=== PATIENT | female | born 1930 | race Caucasian/White ===

== ENCOUNTER 2018-03-22 18:02 | Emergency (ER) | payer MEDICARE ==
[2018-03-22 18:55] LABS: #Eosinphils 0.1 thou/uL (0.0-0.7); #Lymphocytes 1.3 thou/uL (1.20-3.40); #Monocytes 0.4 thou/uL (0.11-0.59); #Neutrophils 5.2 thou/uL (1.40-6.50); %Basophils 0.2 % (0.0-1.0); %Eosinophils 1.8 % (0.0-10.0); %Monocytes 5.6 % (0.0-10.0); %Neutrophils 74.4 % (42.0-75.0); Hemoglobin 11.4 g/dL (12.0-16.0); Mean Corpuscular HGB CONC 32.7 g/dL (32.0-36.0); Mean Corpuscular Hemoglobin 30.7 pg (27.0-31.0); Mean Corpuscular Volume 93.7 fL (78.0-98.0); Mean Platelet Volume 8.2 fL (7.4-10.4); Platelet Count 213 thou/uL (130-400); RBC Distribution Width 17.7 % (11.5-14.5); Red Blood Cell (RBC) Count 3.72 mill/uL (4.20-5.40)
[2018-03-22 19:22] LABS: CKMB 1.5 ng/mL (0-6.6); Troponin I 0.014 ng/mL (< 0.028)
[2018-03-22 19:24] LABS: Albumin 3.6 g/dL (3.4-4.8); Alkaline Phosphatase 68 U/L (40-150); Anion Gap 13 mmol/L (10-20); Bilirubin, Total 0.8 mg/dL (0.2-1.2); Calcium 8.9 mg/dL (7.8-10.44); Carbon Dioxide 24 mmol/L (23-31); Chloride 102 mmol/L (98-107); Globulin 3.3 g/dL (2.4-3.5); Glucose 100 mg/dL (83-110); Potassium 3.4 mmol/L (3.5-5.1); Protein, Total 6.9 g/dL (6.0-8.3); Sodium 136 mmol/L (136-145)
[2018-03-22 19:58] LABS: ALT (SGPT) Less than 7 U/L (8-55); AST (SGOT) 20 U/L (5-34); BUN (Urea Nitrogen) 29 mg/dL (9.8-20.1); CK (CPK) 43 U/L (29-168); Calc. Creatinine Clearance 0 mL/min (70-130); Estimated GFR-MDRD 50
[2018-03-22 20:28] LABS: Bilirubin Negative (Negative); Blood, Urine Negative (Negative); Clarity CLEAR (Clear); Glucose, Urine (Dipstick) Negative (Negative); Leukocyte Negative (Negative); Nitrite Negative (Negative); Protein, Urine (Dipstick) Negative (Neg-Trace); Specific Gravity, Urine 1.013 (1.002-1.036); Urobilinogen 0.2 mg/dL (0.2-1.0)
--- NOTE | 2018-03-30 11:31 | EKG ---
Test Reason : Blood Pressure : / mmHG Vent. Rate : 073 BPM Atrial Rate : 073 BPM P-R Int : 292 ms QRS Dur : 166 ms QT Int : 468 ms P-R-T Axes : 032 -53 070 degrees QTc Int : 515 ms Electronic ventricular pacemaker Confirmed by PARVIN GUZMAN MD ([id number]), web editor FRANCESCA ETIENNE ([id number]) on 03/30/2018 11:31:03 AM Referred By: Confirmed By:PARVIN GUZMAN MD
== END 2018-03-22 20:47 | disposition home or self-care (01) ==
LOC: ERS 18:02
DX: R53.1 Weakness (principal); I50.9 Heart failure, unspecified; E03.9 Hypothyroidism, unspecified; Z79.899 Other long term (current) drug therapy
CPT/HCPCS: 36415; 80053; 81003; 82553; 83880; 84484; 85025; 87086; 93005

== ENCOUNTER 2018-06-11 09:23 | Day surgery (SDC) | payer MEDICARE ==
[2018-06-10 13:07] VITALS: BMI 28.1
[2018-06-11] MEDS ORDERED: PROPOFOL 20 ML ONE (10:10)
[2018-06-11 10:26] LABS: Anion Gap 12 mmol/L (10-20); BUN (Urea Nitrogen) 18 mg/dL (9.8-20.1); Calc. Creatinine Clearance 54 mL/min (70-130); Calcium 9.2 mg/dL (7.8-10.44); Carbon Dioxide 30 mmol/L (23-31); Chloride 98 mmol/L (98-107); Estimated GFR-MDRD 56; Glucose 101 mg/dL (83-110); Potassium 3.8 mmol/L (3.5-5.1); Sodium 136 mmol/L (136-145)
--- NOTE | 2018-06-11 13:59 | ECHO ---
TRANSESOPHAGEAL ECHOCARDIOGRAM: DATE OF PROCEDURE: 06/11/18 INDICATION: 88-year-old woman with paroxysmal atrial fibrillation. DESCRIPTION OF PROCEDURE: The patient was taken to the PACU. The patient was sedated by anesthesiology. A transesophageal probe was placed in the distal esophagus and stomach. Echocardiographic images were obtained. The transesophageal probe was removed. FINDINGS: 1. Mild decrease in left ventricular systolic function. 2. Left atrial enlargement. 3. Moderate mitral regurgitation. 4. Moderate tricuspid regurgitation. 5. Mild aortic regurgitation. 6. No formed thrombus in the left atrium or left atrial appendage. 7. Spontaneous contrast noted in left atrium and left atrial appendage. 8. Pacemaker wire noted in the right ventricle. 9. Atherosclerotic debris in the descending aorta. IMPRESSION: No formed thrombus in the left atrium or left atrial appendage.
--- NOTE | 2018-06-11 14:03 | OP ---
CARDIOLOGY PROCEDURE NOTE: Date: 06/11/18 PROCEDURE: Electrical cardioversion. INDICATION FOR PROCEDURE: 88-year-old woman with paroxysmal atrial fibrillation. DESCRIPTION OF PROCEDURE: The patient was taken to the PACU. The patient was shocked with 35 joules of synchronized electricity through the defibrillator. IMPRESSION: Successful electrical cardioversion.
[2018-06-11] MEDS ORDERED: PROPOFOL 200 MG/20 ML VIAL ONE (16:26)
--- NOTE | 2018-06-12 21:58 | EKG ---
Test Reason : PREOP JUSTIN/CARDIOVESR Blood Pressure : / mmHG Vent. Rate : 070 BPM Atrial Rate : 078 BPM P-R Int : 000 ms QRS Dur : 164 ms QT Int : 472 ms P-R-T Axes : 000 -62 063 degrees QTc Int : 509 ms Electronic ventricular pacemaker Confirmed by Demetrius GLASS ([id number]) on 06/12/2018 9:57:30 PM Referred By: RAFFI Confirmed By:Demetrius GLASS
== END 2018-06-11 12:07 | disposition home or self-care (01) ==
LOC: CCL 09:23
PROVIDERS: ATTEND Internal Medicine Cardiovascular Disease
PROC: 5A2204Z Restoration of Cardiac Rhythm, Single (ICD-10-PCS; principal; 2018-06-11)
DX: I48.0 Paroxysmal atrial fibrillation (principal); I11.0 Hypertensive heart disease with heart failure; I50.22 Chronic systolic (congestive) heart failure; I42.0 Dilated cardiomyopathy; Z79.899 Other long term (current) drug therapy
CPT/HCPCS: 36415; 80048; 92960; 93005; 93010; 93312; J2704